=== PATIENT | male | born 1985 | race Caucasian/White ===

== ENCOUNTER 2017-03-27 01:23 | Emergency (ER) | payer OTHER ==
[~2017-03-27] VITALS: Ht 167.6 cm; Wt 77.1 kg
[~2017-03-27 01:23] MED LIST: NOHOMEMEDICATIONS; TRAMADOL 50 MG50 MG PO
[2017-03-27] MEDS ORDERED: KEFLEX500 M1 PO (01:56)
== END 2017-03-27 02:22 | disposition home or self-care (01) ==
LOC: ER 01:23
DX: S71.131A Puncture wound without foreign body, right thigh, initial encounter (principal); F17.210 Nicotine dependence, cigarettes, uncomplicated; W26.0XXA Contact with knife, initial encounter; Y93.89 Activity, other specified; Y92.89 Other specified places as the place of occurrence of the external cause; Y99.8 Other external cause status